=== PATIENT | male | born 1995 | race Caucasian/White ===

== ENCOUNTER → 2016-04-10 | Outpatient (CLI) | payer BC ==
--- NOTE | 2016-04-10 11:53 | KCIC ---
Examination: Three views of the left 2nd digit. HISTORY History of swelling, redness in the left 2nd digit at the PIP joint for 3 weeks. COMPARISON None available Findings: The alignment of the metacarpophalangeal joint, interphalangeal joints grossly appears unremarkable. There is no acute fracture or dislocation identified. Probable questionable soft tissue swelling identified dorsal to the PIP joint of the 2nd digit. IMPRESSION 1. No acute osseous findings. 2. Probable mild questionable soft tissue swelling identified in the dorsal aspect of the PIP joint. Electronically signed by: Handy Tao (Apr 10, 2016 11:51:26)
== END | disposition home or self-care (01) ==
LOC: KCIC 10:10
PROVIDERS: ATTEND Nurse Practitioner Family
DX: M25.442 Effusion, left hand (principal)
CPT/HCPCS: 73140

== ENCOUNTER → 2016-05-29 | Outpatient (CLI) | payer BC ==
--- NOTE | 2016-05-29 12:16 | KCIC ---
PROCEDURE Left wrist radiographs HISTORY Left wrist pain for 2 months, no known injury COMPARISON None available FINDINGS Two views of the left wrist are submitted. No acute fracture or dislocation is identified. No focal bone erosion is identified. IMPRESSION No acute radiographic abnormality is identified. Electronically signed by: Alberto Austin MD (May 29, 2016 12:14:30)
== END | disposition home or self-care (01) ==
LOC: KCIC 09:54
PROVIDERS: ATTEND Nurse Practitioner Family
DX: M25.532 Pain in left wrist (principal)
CPT/HCPCS: 73100

== ENCOUNTER → 2016-11-14 | Day surgery (SDC) | payer BC ==
[~2016-11-14] VITALS: Ht 175.3 cm; Wt 79.4 kg
[~2016-11-14] MED LIST: 0.9 % SODIUM CHLORIDE 50 ML VIAL. IJ ONE; BUPIVACAINE MPF 0.5% 30 ML VIAL. ONE; DOCU-109 PO; HYDR-971 PO; HYDROcodone/APAP 5/325MG 1 TAB TABLET PO PRN; HYDROmorphone 2 MG/ML VIAL IV PRN; IV RINGERS,LACTATED 1000ML 1,000 ML IV SCH; LIDOCAINE 1% PF 2 ML VIAL. ID PRN; LIDOCAINE 1% PF 30 ML VIAL. ONE; LIDOCAINE 2% 20 ML VIAL. ONE; LIDOCAINE 2% PF Vial for OR 5 ML VIAL. ONE; MIDAZOLAM HCL/PF 2 MG/2 ML VIAL. ONE; MORPHINE SULFATE 2 MG/ML DISP.SYRIN. IV PRN; ONDA4TAB10 SL; ONDANSETRON PF 4 MG/2 ML VIAL. IV PRN; PROCHLORPERAZINE 10 MG/2 ML VIAL. IV PRN; PROPOFOL 20 ML IV ONE; fentaNYL PF VIAL 100 MCG/2 ML VIAL IV PRN
--- NOTE | 2016-11-14 10:14 | DISCH ---
DISCHARGE INSTRUCTIONS Condition on Discharge Condition on Discharge: Stable Activity After Discharge Activity Instructions for Disc: Other, see below Other activity instructions: wiggle fingers Bathing Instructions: Shower-keep dressing dry Lifting Instructions after Dis: No heavy lifting, No pulling or pushing Weight Bearing Status after Di: As tolerated Diet after Discharge Diet after Discharge: Regular Wound Incision Care Wound/Incision Care: Ice to area for comfort, Keep wound/cast CDI, Keep wound elevated, Change dressing Contacting the DRMarleen after DC Call your doctor for: Concerns you may have Follow-Up Follow up with: Kun in 2wks CHARLEE JOY II, MD Nov 14, 2016 10:14
--- NOTE | 2016-11-14 12:21 | OP ---
DATE OF SURGERY: 11/14/2016 SURGEON: Derek Joy MD TECHNOLOGY SALES REPRESENTATIVE: None. PREOPERATIVE DIAGNOSIS: Left volar wrist cyst. POSTOPERATIVE DIAGNOSIS: Left volar wrist cyst. PROCEDURE PERFORMED: Open excision, left volar cyst. ANESTHESIA: Babak block plus sedation plus local. TOURNIQUET TIME: 31 minutes. ESTIMATED BLOOD LOSS: 10 mL. FINDINGS: The patient had a volar wrist cyst arising from deep in his carpal bones just on the ulnar side of the scaphoid. It was closely adherent to a vein. He had a palpable radial artery and great perfusion and capillary refill in his nail beds to his hand after surgery. SPECIMENS: Cyst was sent to pathology. COMPLICATIONS: None. REASON FOR PROCEDURE: The patient is a very pleasant 21-year-old who was recently listed for the [employer] and scheduled to report to [facility] in the next several months. He has a volar wrist cyst that has been enlarging depending on his activity and causing him local symptoms and interfering with his ability to exercise as much as he would like to. Therefore, we had discussion of risks, benefits, alternatives to proceed with cyst excision. Given its location, I had performed an Meir's test to confirm the patent ulnar artery on two separate occasions in my clinic when I had seen him preoperatively. He elected to proceed with surgery. DESCRIPTION OF PROCEDURE: The patient was greeted in the preoperative area by myself. Correct extremity was marked and verified. He was taken to the operative suite and antibiotics were started en route. Once in the OR, transferred gently supine to the OR table and secured to the bed. He had successful placement of a [place] block by the anesthesiology team followed by conscious sedation. We then proceeded to prep and drape the left upper extremity in our usual sterile fashion and conducted a standard preoperative timeout. While he was in the preoperative holding area, I had circled his cyst and zeinab a trace to dark line over his radial artery. I then made my incision over his cyst in a hockey stick type fashion to accommodate his wrist crease. I dissected skin with tenotomies and used bipolar electrocautery to cauterize bleeders. I used tenotomies to dissect subcutaneous tissue and identify the cyst. It was closely adherent to a vein. I dissected around the vein and tied it off with silk ties at its proximal and distal extent around the cyst. I then transected this and cauterized the visible lumen with bipolar cautery. I then continued dissecting around the cyst with my tenotomies until I found the stalk and where it tracked down. I removed the cyst and the stalk and delivered it out from the operative field. I then used bipolar cautery to cauterize this area to try to create some scar tissue in order to help minimize recurrence. After this, tourniquet was let down. His radial artery was palpable in the operative field. Some venous bleeders were cauterized around the skin edge. We then closed the skin with 3-0 nylon in a horizontal mattress fashion. After this, the arm was cleansed and dried and I injected about 5 mL of local anesthetic mixture into the tiff-incisional area. He had great capillary refill at his nailbeds and his hand was pink and well perfused. I then placed Steri-Strips, Xeroform and a bulky soft dressing over his left wrist. He was then awakened from anesthesia and transferred gently supine to the recovery room cart. He was taken to the PACU in stable and extubated condition. Prior to completion of wound closure, all counts were reported correct x 2. No complications. Surgery performed under loupe magnification Postop plan is to discharge him home. I did discuss activity restrictions and encourage active range of motion of his digits. We will see him back in 2 weeks, sooner should problems arise. DEREK JOY MD DR: GREYSON/candis JOB#: [id number] / [id number] FERNANDO
[2016-11-14 12:45] VITALS: BP 116/62
--- NOTE | 2016-11-16 13:42 | PATHOLOGY ---
PATHOLOGY REPORT * * * * * * * * FINAL DIAGNOSIS: Fibroadipose tissue, left wrist: - Ganglion cyst. (JPM:lawson; 11/16/2016) COMMENT: Sections of the left wrist reveal a multiloculated ganglion cyst. There are a few thick-walled blood vessels within the soft tissues surrounding the cyst. (JPM:lawson; 11/16/2016) REPORT ELECTRONICALLY SIGNED BY: Cole Medel M.D. DATE/TIME: 11/16/2016 13:33 * * * * * * * * GROSS PATHOLOGY: The specimen is received in formalin, labeled "Meliton Santiago, left wrist cyst". Received is a lobulated segment of pink-cochran soft tissue measuring 1.2 x 0.6 x 0.5 cm in greatest dimensions. The specimen is inked and bisected. Sectioning reveals smooth pale cochran to light brown cut surfaces. The specimen is submitted entirely in cassette A1. (DAC; 11/15/2016) INITIAL CPT CODE(S): A; 67891 Professional services performed by [facility] [place] [address] Technical services performed by [facility] at [address] [place] [address]. SPECIMEN(S) RECEIVED: A.Left wrist cyst CLINICAL HISTORY: Left wrist cyst PATIENT: MELITON SANTIAGO /AGE: 1202/21/1995 (Age: 21) PATIENT #: [id number] ALT CASE #: SPECIMEN COLLECTION DATE: 11/14/2016 SPECIMEN RECEIVED DATE: 11/14/2016 [facility] - [address] [place] [address] - PHONE: [phone] * * * END OF REPORT * * *
--- NOTE | 2016-12-11 15:05 | PDOC ---
BRIEF OPERATIVE NOTE Date: Nov 14, 2016 Pre-Op Diagnosis L wrist cyst Post-Op Diagnosis same Procedure Performed Left wrist cyst excision Surgeon Kun Anesthesia Type: General, Local Blood Loss 10mL Specimens Obtained tissue to Path Complications none CHARLEE JOY II, MD Dec 11, 2016 15:05
== END | disposition home or self-care (01) ==
LOC: SURG 09:33
PROVIDERS: ATTEND Orthopaedic Surgery Sports Medicine
DX: M67.431 Ganglion, right wrist (principal); F17.200 Nicotine dependence, unspecified, uncomplicated; Z87.39 Personal history of other diseases of the musculoskeletal system and connective tissue; Z72.0 Tobacco use
CPT/HCPCS: 25111; 88304; J0690; J2250; J2704; J3490; J7120; J2001